=== PATIENT | female | born 1955 | race Caucasian/White ===

== ENCOUNTER 2023-04-26 16:18 | Inpatient (IN) | payer MEDICARE, SELFPAY ==
[2023-04-26 16:41] VITALS: BMI 31.3
[2023-04-26 17:22] VITALS: BP 168/76; PULSE 74; RESP 17; TEMP 36.4; O2SAT 92
[2023-04-26 17:36] LABS: Bedside Glucose 121 mg/dL (74-106)
[2023-04-26 19:40] VITALS: O2SAT 94
[2023-04-26 19:50] VITALS: BP 239/98; PULSE 85; RESP 20; TEMP 37.3; O2SAT 92
[2023-04-26] MEDS: oxyCODONE 5 MG Tablet PO ×2 (19:50→21:10)
[2023-04-26] MEDS: Acetaminophen 500 MG Tablet 1000 MG PO (19:50)
[2023-04-26] MEDS: Methocarbamol 750 MG Tablet PO (19:51)
[2023-04-26] MEDS: BACITRACIN/POLYMYXIN B 15 GM Tube 1 APPLIC TOPICAL (19:54)
[2023-04-26] MEDS: Lisinopril 20 MG Tablet PO (19:54)
[2023-04-26] MEDS: Propranolol 40 MG Tablet PO (19:54)
[2023-04-26] MEDS: Atorvastatin Calcium 20 MG Tablet PO (19:54)
[2023-04-26 20:46] LABS: Bedside Glucose 189 mg/dL (74-106)
[2023-04-26 22:08] VITALS: BP 176/71
[2023-04-27] MEDS: oxyCODONE 5 MG Tablet PO ×5 (03:07→21:21)
[2023-04-27] MEDS: Acetaminophen 500 MG Tablet 1000 MG PO ×3 (05:48→21:23)
[2023-04-27] MEDS: Methocarbamol 750 MG Tablet PO ×3 (05:48→21:22)
[2023-04-27] MEDS: Propranolol 40 MG Tablet PO ×3 (05:48→21:22)
[2023-04-27] MEDS: BACITRACIN/POLYMYXIN B 15 GM Tube 1 APPLIC TOPICAL ×2 (05:49→21:23)
[2023-04-27 06:00] VITALS: BP 204/80; PULSE 70; RESP 18; TEMP 36; O2SAT 93
[2023-04-27] MEDS: Lidocaine 5% Patch 1 PATCH TOPICAL (06:07)
[2023-04-27 06:36] LABS: Bedside Glucose 167 mg/dL (74-106)
[2023-04-27 08:15] LABS: Hematocrit 30.9 % (37-47); Hemoglobin 10.5 g/dL (12.0-15.0); Mean Corpuscular Hgb 29.9 pg (27.0-32.0); Mean Platelet Vol. 8.3 fl (6.2-12.0); POSITIVE COUNT YES; POSITIVE MORPHOLOGY YES; Platelet Count 209 K/mm3 (150-450); RBC Distribution Width CV 14.1 % (11.6-14.6); RBC Distribution Width SD 43.2 fl (35.1-43.9); Red Blood Count 3.51 M/mm3 (4.2-5.4); White Blood Count 4.9 K/mm3 (4.4-11.0)
[2023-04-27 08:25] LABS: Differential Indicated MANUAL DIFF
[2023-04-27 08:30] VITALS: BP 159/47; PULSE 60
[2023-04-27] MEDS: Pioglitazone Hydrochloride 30 MG Tablet PO (08:34)
[2023-04-27] MEDS: Glimepiride 2 MG Tablet PO (08:34)
[2023-04-27] MEDS: Polyethylene Glycol 3350 17 GM PACKET PO (08:35)
[2023-04-27] MEDS: Lisinopril 20 MG Tablet PO ×2 (08:35→21:23)
[2023-04-27 08:36] LABS: Eosinophil 4 % (0-5); Lymphocyte 28 % (19-41); Metamyelocyte 1 % (0-1); Monocyte 7 % (0-10); Myelocyte 1 % (0-0); Neutrophil-Band 1 % (0-5); Neutrophil-Segmented 58 % (47-70); Total Cells Counted 100 (MANUAL DIFF)
[2023-04-27 08:39] LABS: ALB/GLOB Ratio 0.6 RATIO (0.9-2.4); AST(SGOT) 24 U/L (15-37); Alanine Aminotransfer ALT/SGPT 24 U/L (13-56); Albumin, Serum 2.1 g/dL (3.2-5.0); Alkaline Phosphatase 50 U/L (45-117); Anion Gap 4 (5-15); BUN 10 mg/dL (7-18); BUN/Creat Ratio 16.8 RATIO (10-20); Calcium,Total 8.9 mg/dL (8.5-10.1); Chloride 103 mmol/L (98-107); EST Glomerular Filtration Rate 106 mL/min (>60); Est Glom Filt Rate - Afr Amer 128 mL/min (>60); Estimated Creatinine Clearance 75.66 ml/min; Globulin 3.7 g/dL (2.2-4.2); Glucose 180 mg/dL (74-106); Magnesium 2.1 mg/dL (1.6-2.6); Potassium 3.7 mmol/L (3.5-5.1); Protein, Total 5.8 g/dL (6.4-8.2); Sodium Level 134 mmol/L (136-145)
[2023-04-27 08:40] LABS: Platelet Estimate ADEQUATE (ADEQ); Red Cell Morphology NORM C+C NORMAL (NORM C&C)
[2023-04-27 08:42] LABS: Absolute Neutrophil Count 2.9 X10^3/uL (2.0-7.7)
[2023-04-27] MEDS: Menthol/Lanolin/Calamine/Znox 113 GM Tube 1 APPLIC TOPICAL ×2 (08:42→21:26)
[2023-04-27 12:16] LABS: Bedside Glucose 150 mg/dL (74-106)
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
[2023-04-27 16:10] LABS: Hemoglobin A1c 6.1 % (3.8-5.6)
[2023-04-27 17:15] LABS: Bedside Glucose 133 mg/dL (74-106)
[2023-04-27 21:20] VITALS: BP 145/49; PULSE 60; RESP 17; TEMP 36.4; O2SAT 95
[2023-04-27] MEDS: Atorvastatin Calcium 20 MG Tablet PO (21:22)
[2023-04-27 21:48] LABS: Bedside Glucose 135 mg/dL (74-106)
[2023-04-28 01:06] LABS: Microalbumin,Random Urine < 5.0 mg/L (NO RANGE EST.)
[2023-04-28] MEDS: oxyCODONE 5 MG Tablet PO ×2 (05:30→09:38)
[2023-04-28] MEDS: Propranolol 40 MG Tablet PO ×3 (05:31→21:46)
[2023-04-28] MEDS: Acetaminophen 500 MG Tablet 1000 MG PO (05:31)
[2023-04-28] MEDS: Methocarbamol 750 MG Tablet PO ×3 (05:31→17:22)
[2023-04-28] MEDS: BACITRACIN/POLYMYXIN B 15 GM Tube 1 APPLIC TOPICAL ×2 (05:40→21:52)
[2023-04-28 06:38] VITALS: O2SAT 95
[2023-04-28] MEDS: Enoxaparin 40 MG/0.4 ML Syringe SC (06:46)
[2023-04-28 07:10] VITALS: BMI 30.9
[2023-04-28 07:14] LABS: Bedside Glucose 145 mg/dL (74-106)
[2023-04-28 08:05] VITALS: BP 164/74; PULSE 67; RESP 17; TEMP 36.2; O2SAT 95
[2023-04-28] MEDS: Glimepiride 2 MG Tablet PO (08:58)
[2023-04-28] MEDS: Pioglitazone Hydrochloride 30 MG Tablet PO (08:59)
[2023-04-28] MEDS: Polyethylene Glycol 3350 17 GM PACKET PO (08:59)
[2023-04-28] MEDS: Lidocaine 5% Patch 1 PATCH TOPICAL (08:59)
[2023-04-28] MEDS: Lisinopril 20 MG Tablet PO ×2 (08:59→21:46)
--- NOTE | 2023-04-28 10:50 | PN_ITS ---
Subjective Subjective Afebrile VSS Maintaining appropriate oxygen saturation on RA Oral intake - FOOD 50 to 74% of her meal FLUIDS fair The blood sugar record was reviewed. Blood sugars are well-controlled. Discussed with nursing - no problems that need addressed Reviewed the THERAPY notes Medication list reviewed. Tells me that she slept somewhat better last night. she is c/o pain in the LUQ of the abd and the R neck after therapy this AM. The pain improved when she got back in bed. Denies feeling bloated or constipated. Having regular BM's. Pain in the abd is not crampy. She denies nausea and has not had any emesis. She ate 50-74% of her breakfast this AM. Denies pain in the arms or legs. Denies numbness. Denies cephalgia. No calf tenderness. Hemoglobin A1c is 6.1. Objective Data Objective Data Vital Signs: Vital Signs Temp Pulse Resp BP Pulse Ox O2 Del Method 97.2 F L 67 17 164/74 H 95 Room Air 04/28/23 08:05 04/28/23 08:05 04/28/23 08:05 04/28/23 08:05 04/28/23 08:05 04/28/23 08:05 Oxygen Delivery Method Room Air Weight: 199 lb 15.348 oz Body Mass Index (BMI) 31.3 Intake & Output: Intake and Output for Last 24 Hours 04/26/23 04/27/23 04/28/23 23:59 23:59 23:59 Intake Total 240 / 240 1020 / 1020 Output Total 800 / 800 1000 / 1000 Balance -560 / -560 Lab / Micro Data 04/27/23 08:01 04/27/23 08:01 Labs: Laboratory Results - last 24 hr 04/27/23 08:01: Hemoglobin A1c 6.1 H 04/27/23 11:58: POC Glucose 150 H 04/27/23 16:51: POC Glucose 133 H 04/27/23 21:17: POC Glucose 135 H 04/27/23 23:50: Ur Random Microalbumin < 5.0 04/28/23 06:45: POC Glucose 145 H Physical Exam Const alert, oriented x3 and no apparent distress Constitutional Narrative: Lying in bed resting. Neck Neck Narrative: [place] J collar is in place. Resp normal respiratory effort and clear to auscultation bilaterally Effort and Inspection: Negative for tachypneic Cardio regular rate, regular rhythm, no murmurs, no rub and no gallops GI normal to inspection, nondistended, normoactive bowel sounds, soft to palpation and non-tender GI Narrative: No guarding with palpation. Not tympanic. No guarding even with deep palpation of the left upper quadrant. Extremity no calf tenderness Extremity Narrative: Persistent edema of hands and feet Skin General Skin Exam: no breakdown Rashes: no rashes Wound Narrative: The scalp laceration is intact with no discharge from the wound and no erythema. Neuro CN's II-XII intact bilaterally Psych thought process normal and affect normal Assessment & Plan Assessment/Plan (1) Physical debility: (2) ABLA (acute blood loss anemia): (3) Hyponatremia: (4) History of spinal fusion: (5) Acute pain due to trauma: PLAN: Plan 1. Continue therapy 2. Schedule Oxycodone 10 mg at 0700, 1200, 1700. 15 mg at 10 PM nightly 3. Schedule the Methocarbamol 750 at 077, noon, 5 PM. 1,000 mg at 2200 nightly. 4. Continue Tylenol 650 mg at 0700, 1200, 1700 and 2200. 5. Decrease Accu-Cheks to twice daily, fasting and prior to supper. 6. She was taking Gabapentin 100 mg TID at the previous hospital and this was not continued at transfer to [facility]. Charges/Coding Visit Charges Inpatient E&M: 23436 Subs Hosp L2
[2023-04-28] MEDS: oxyCODONE 5 MG Tablet 10 MG PO ×2 (13:04→17:23)
[2023-04-28] MEDS: Acetaminophen 325 MG Tablet 650 MG PO ×3 (13:05→21:46)
[2023-04-28 13:18] LABS: Pathologist Review Reviewed
[2023-04-28 14:32] VITALS: BP 167/68; PULSE 68; RESP 20
[2023-04-28 16:36] LABS: Bedside Glucose 139 mg/dL (74-106)
[2023-04-28] MEDS: Methocarbamol 500 MG Tablet 1000 MG PO (21:44)
[2023-04-28] MEDS: oxyCODONE 5 MG Tablet 15 MG PO (21:46)
[2023-04-28] MEDS: Atorvastatin Calcium 20 MG Tablet PO (21:46)
[2023-04-28] MEDS: Menthol/Lanolin/Calamine/Znox 113 GM Tube 1 APPLIC TOPICAL (21:48)
[2023-04-28 22:00] VITALS: BP 151/61; PULSE 58; RESP 18; TEMP 36.6; O2SAT 95
[2023-04-29] MEDS: BACITRACIN/POLYMYXIN B 15 GM Tube 1 APPLIC TOPICAL ×2 (05:00→21:38)
[2023-04-29] MEDS: Propranolol 40 MG Tablet PO ×3 (05:00→21:33)
[2023-04-29] MEDS: Enoxaparin 40 MG/0.4 ML Syringe SC (05:00)
[2023-04-29] MEDS: Methocarbamol 750 MG Tablet PO ×3 (06:00→16:40)
[2023-04-29] MEDS: oxyCODONE 5 MG Tablet 10 MG PO ×3 (06:00→16:39)
[2023-04-29] MEDS: Acetaminophen 325 MG Tablet 650 MG PO ×4 (06:00→21:35)
[2023-04-29] MEDS: Pioglitazone Hydrochloride 30 MG Tablet PO (07:54)
[2023-04-29] MEDS: Glimepiride 2 MG Tablet PO (07:55)
[2023-04-29] MEDS: Lisinopril 20 MG Tablet PO ×2 (07:55→21:33)
[2023-04-29] MEDS: Methocarbamol 500 MG Tablet 1000 MG PO (07:55)
[2023-04-29] MEDS: Polyethylene Glycol 3350 17 GM PACKET PO (07:57)
[2023-04-29] MEDS: Senna/Docusate Sodium 1 Tablet 2 TABLET PO (07:57)
[2023-04-29] MEDS: Lidocaine 5% Patch 1 PATCH TOPICAL (07:57)
[2023-04-29 08:03] LABS: Bedside Glucose 142 mg/dL (74-106)
[2023-04-29 08:08] VITALS: BP 120/70; PULSE 69; RESP 18; TEMP 36.6; O2SAT 96
--- NOTE | 2023-04-29 10:41 | NURSING ---
dr blas text for poss additional pain meds for breakthrough pain. no new orders at this time.
--- NOTE | 2023-04-29 15:07 | NURSING ---
pt called out and reports numbness to rt thigh. pt rubbing it. able to move and no weakness obs unilaterally. pt with decreased sensation when had close eyes and did skin prick with testing. will let dr. blas know.
[2023-04-29 17:03] LABS: Bedside Glucose 103 mg/dL (74-106)
[2023-04-29 19:50] VITALS: BP 167/53; PULSE 61; RESP 16; TEMP 36.8; O2SAT 96
[2023-04-29] MEDS: oxyCODONE 5 MG Tablet 15 MG PO (21:33)
[2023-04-29] MEDS: Atorvastatin Calcium 20 MG Tablet PO (21:33)
[2023-04-30] MEDS: Methocarbamol 750 MG Tablet PO ×3 (06:11→17:06)
[2023-04-30] MEDS: Propranolol 40 MG Tablet PO ×3 (06:11→21:37)
[2023-04-30] MEDS: oxyCODONE 5 MG Tablet 10 MG PO ×4 (06:11→21:37)
[2023-04-30] MEDS: Acetaminophen 325 MG Tablet 650 MG PO ×4 (06:11→21:39)
[2023-04-30] MEDS: Enoxaparin 40 MG/0.4 ML Syringe SC (06:15)
[2023-04-30] MEDS: BACITRACIN/POLYMYXIN B 15 GM Tube 1 APPLIC TOPICAL ×2 (06:17→21:38)
[2023-04-30 07:02] LABS: Bedside Glucose 148 mg/dL (74-106)
[2023-04-30 07:52] VITALS: BP 164/72; PULSE 70; RESP 69; TEMP 36.4; O2SAT 97
[2023-04-30] MEDS: Glimepiride 2 MG Tablet PO (10:12)
[2023-04-30] MEDS: Lisinopril 20 MG Tablet PO ×2 (10:12→21:39)
[2023-04-30] MEDS: Polyethylene Glycol 3350 17 GM PACKET PO (10:12)
[2023-04-30] MEDS: Senna/Docusate Sodium 1 Tablet 2 TABLET PO (10:12)
[2023-04-30] MEDS: Pioglitazone Hydrochloride 30 MG Tablet PO (10:12)
[2023-04-30] MEDS: Lidocaine 5% Patch 1 PATCH TOPICAL (10:13)
[2023-04-30] MEDS: Miconazole Nitrate 43 GM Bottle 1 APPLIC TOPICAL ×2 (10:16→21:36)
[2023-04-30] MEDS: Menthol/Lanolin/Calamine/Znox 113 GM Tube 1 APPLIC TOPICAL ×2 (10:16→21:36)
--- NOTE | 2023-04-30 11:27 | PCM.PROGNOTE ---
Subjective Subjective Afebrile VSS-systolic blood pressures consistently elevated and often in the 160s. Diastolics are within goal. Heart rate is within normal limits. Maintaining appropriate oxygen saturation on RA Oral intake - FOOD appetite is improving somewhat FLUIDS inconsistent intake. She took 1400 cc p.o. yesterday. Discussed with nursing - she is having pain early in the AM around 4-5 Reviewed the THERAPY notes Medication list reviewed. She is c/o pain in the trapezius areas BL and also is having some radiation into the Left triceps. Oxycodone has not been very effective in relieving this pain. She denies any numbness in her upper extremities or fingertips. She is also complaining of lightheadedness when she turns over in bed and when she sits up. Oral fluid intake was okay yesterday but prior to that was poor. Mckenzie tells me that her pain is somewhat better than it was when she first arrived on rehab. Overall she is pretty happy with her pain control but would like something as needed if she awakens at 3 to 5:0 AM with pain. To be denies any change in the chest discomfort, shortness of breath, cough, calf pain, dysuria, cephalgia, shaking chills, nausea. Objective Data Objective Data Vital Signs: Vital Signs Temp Pulse Resp BP Pulse Ox O2 Del Method 97.6 F L 70 69 H 164/72 H 97 Room Air 04/30/23 07:52 04/30/23 07:52 04/30/23 07:52 04/30/23 07:52 04/30/23 07:52 04/30/23 10:00 Oxygen Delivery Method Room Air Weight: 197 lb 3.2 oz Body Mass Index (BMI) 30.9 Intake & Output: Intake and Output for Last 24 Hours 04/28/23 04/29/23 04/30/23 23:59 23:59 23:59 Intake Total 800 / 800 1400 / 1400 490 / 490 Output Total 1100 / 1100 600 / 600 1000 / 1000 Balance -300 / -300 800 / 800 -510 / -510 Lab / Micro Data 04/27/23 08:01 04/27/23 08:01 Labs: Laboratory Results - last 24 hr 04/29/23 16:38: POC Glucose 103 04/30/23 06:44: POC Glucose 148 H Physical Exam Const alert, oriented x3 and no apparent distress Constitutional Narrative: Nursing just changed her bed and she was rolled from side to side which she tolerated well without any significant increase in pain. General Appearance: cooperative Resp clear to auscultation bilaterally Resp Narrative: No conversational dyspnea Effort and Inspection: Negative for tachypneic Cardio regular rate, regular rhythm, no murmurs, no rub and no gallops Cardio Narrative: Occasional early beat which she does not feel. GI normal to inspection, nondistended, normoactive bowel sounds, soft to palpation and non-tender GI Narrative: No guarding with palpation Back/Spine Back/Spine Narrative: No significant trapezius spasm. she has no pain with palpation of the trapezius muscles with palpation/touch. Extremity no calf tenderness Extremity Narrative: No ankle edema. The puffiness in her hands is improving. Skin General Skin Exam: no breakdown Rashes: no rashes Wound Narrative: The scalp laceration is healing well with no erythema, no purulent discharge and no localized swelling. Psych cooperative and affect normal Appearance: appropriate Assessment & Plan Assessment/Plan (1) Physical debility: (2) ABLA (acute blood loss anemia): (3) Hyponatremia: (4) History of spinal fusion: (5) Acute pain due to trauma: PLAN: Plan 1. Continue therapy 2. I suspect the pain in the upper trapezius areas and the shoulders and triceps is radicular pain. She was previously on gabapentin at the other hospital so we will restart at 100 mg p.o. 3 times daily. 3. Add a as needed dose of oxycodone 10 mg from MN to 6AM for breakthrough pain. 4. Check a BMP and CBC with differential in the AM. Charges/Coding Visit Charges Inpatient E&M: 97380 Subs Hosp L1
[2023-04-30] MEDS: Gabapentin 100 MG Capsule PO ×2 (11:52→17:07)
[2023-04-30 17:38] LABS: Bedside Glucose 120 mg/dL (74-106)
[2023-04-30] MEDS: Atorvastatin Calcium 20 MG Tablet PO (21:37)
[2023-04-30] MEDS: Methocarbamol 500 MG Tablet 1000 MG PO ×2 (21:54)
[2023-04-30 21:58] VITALS: BP 144/70; PULSE 70; RESP 16; TEMP 36.4; O2SAT 96
[2023-04-30 22:00] VITALS: PULSE 70; RESP 16
[2023-05-01] MEDS: oxyCODONE 5 MG Tablet PO (03:20)
[2023-05-01 06:01] LABS: Absolute Lymphocyte Count 1.84 X10^3/uL (0.83-4.51); Absolute Neutrophil Count 3.6 X10^3/uL (2.0-7.7); Basophil# 0.03 X10^3/uL; Basophil% 0.5 % (0-1); Eosinophil# 0.21 X10^3/uL; Eosinophils% 3.4 % (0-5); Hematocrit 32.8 % (37-47); Lymphocyte # 1.84 X10^3/ul (0.83-4.51); Lymphocyte % 29.7 % (19-41); Mean Corp Hgb Conc 33.5 g/dL (32-36); Mean Corpuscular Hgb 30.2 pg (27.0-32.0); Mean Corpuscular Volume 90.1 fL (81-99); Mean Platelet Vol. 8.5 fl (6.2-12.0); Monocyte# 0.48 X10^3/uL; Monocyte% 7.7 % (0-10); NRBC Flagged by Analyzer 0 % (0-5); Neutrophil # 3.56 X10^3/uL (2.7-7.7); Neutrophil % 57.4 % (47-70); Platelet Count 271 K/mm3 (150-450); RBC Distribution Width SD 46.8 fl (35.1-43.9); Red Blood Count 3.64 M/mm3 (4.2-5.4); White Blood Count 6.2 K/mm3 (4.4-11.0)
[2023-05-01] MEDS: BACITRACIN/POLYMYXIN B 15 GM Tube 1 APPLIC TOPICAL ×2 (06:13→21:37)
[2023-05-01] MEDS: Propranolol 40 MG Tablet PO ×3 (06:13→21:37)
[2023-05-01] MEDS: Enoxaparin 40 MG/0.4 ML Syringe SC (06:13)
[2023-05-01] MEDS: Acetaminophen 325 MG Tablet 650 MG PO ×4 (06:14→21:38)
[2023-05-01] MEDS: oxyCODONE 5 MG Tablet 10 MG PO ×3 (06:14→17:06)
[2023-05-01] MEDS: Methocarbamol 750 MG Tablet PO (06:14)
[2023-05-01 06:38] LABS: Anion Gap 5 (5-15); BUN 14 mg/dL (7-18); BUN/Creat Ratio 24.1 RATIO (10-20); Calcium,Total 8.9 mg/dL (8.5-10.1); Chloride 105 mmol/L (98-107); Creatinine, Serum 0.58 mg/dL (0.55-1.02); EST Glomerular Filtration Rate 109 mL/min (>60); Est Glom Filt Rate - Afr Amer 132 mL/min (>60); Estimated Creatinine Clearance 75.14 ml/min; Glucose 143 mg/dL (74-106); Potassium 4.1 mmol/L (3.5-5.1); Sodium Level 135 mmol/L (136-145)
[2023-05-01 07:15] LABS: Bedside Glucose 135 mg/dL (74-106)
[2023-05-01 08:00] VITALS: BP 146/62; PULSE 73; RESP 16; TEMP 36.8; O2SAT 95
[2023-05-01] MEDS: Lidocaine 5% Patch 1 PATCH TOPICAL (08:34)
[2023-05-01] MEDS: Pioglitazone Hydrochloride 30 MG Tablet PO (08:34)
[2023-05-01] MEDS: Gabapentin 100 MG Capsule PO ×3 (08:34→18:04)
[2023-05-01] MEDS: Lisinopril 20 MG Tablet PO ×2 (08:34→21:38)
[2023-05-01] MEDS: Ergocalciferol 1.25 MG (50, 000 UNIT) Capsule PO (08:34)
[2023-05-01] MEDS: Glimepiride 2 MG Tablet PO (08:34)
[2023-05-01] MEDS: Menthol/Lanolin/Calamine/Znox 113 GM Tube 1 APPLIC TOPICAL ×2 (08:37→21:50)
[2023-05-01] MEDS: Miconazole Nitrate 43 GM Bottle 1 APPLIC TOPICAL ×2 (08:37→21:50)
--- NOTE | 2023-05-01 11:40 | PCM.PROGNOTE ---
Subjective Subjective Mckenzie was seen on team rounds today. Her Dudley was present in the room. Afebrile VSS-systolic blood pressures are consistently elevated but the diastolics are within normal limits. Heart rate is within normal limits. Maintaining appropriate oxygen saturation on RA Oral intake - FOOD she ate 75 to 100% of her breakfast this morning and 50 to 74% of her supper last night. Overall nutritional intake is improving. FLUIDS adequate Last bowel movement was today. The blood sugar record was reviewed and the blood sugars are under excellent control. Discussed with nursing -has been incontinent of urine at times. Reviewed the THERAPY notes Medication list reviewed. Mckenzie tells me that she slept better last night and the additional dose of as needed oxycodone at night seems to be helping. She does not feel the gabapentin has been helping and she is complaining of pain in the R posterior shoulder and the upper thoracic area on the R. She tells me that she has an occasional cough and the sputum is green. the pain only happens when she is actively using the muscles of the r shoulder/RUE and R upper back. It resolves when she is back in bed. Denies N/V/abd pain, dysuria, She denies chest pain, calf pain, shortness of breath, nausea, vomiting, abdominal pain, lightheadedness and cephalgia. All lab drawn this morning was personally reviewed. Hemoglobin is stable at 11 and the white blood cell count and platelets are within normal limits. Sodium is mildly decreased at 135 but stable. Potassium is 4.1, BUN is 14 with a creatinine of 0.58 which is stable. Objective Data Objective Data Vital Signs: Vital Signs Temp Pulse Resp BP Pulse Ox O2 Del Method 98.2 F 73 16 146/62 H 95 Room Air 05/01/23 08:00 05/01/23 08:00 05/01/23 08:00 05/01/23 08:00 05/01/23 08:00 05/01/23 08:00 Oxygen Delivery Method Room Air Weight: 197 lb 3.2 oz Body Mass Index (BMI) 30.9 Intake & Output: Intake and Output for Last 24 Hours 04/29/23 04/30/23 05/01/23 23:59 23:59 23:59 Intake Total 1400 / 1400 1380 / 1380 860 / 860 Output Total 600 / 600 1650 / 1650 950 / 950 Balance 800 / 800 -270 / -270 -90 / -90 Lab / Micro Data 05/01/23 05:51 05/01/23 05:51 Labs: Laboratory Results - last 24 hr 04/30/23 17:10: POC Glucose 120 H 05/01/23 05:51: WBC 6.2, RBC 3.64 L, Hgb 11.0 L, Hct 32.8 L, MCV 90.1, MCH 30.2, MCHC 33.5, RDW Std Deviation 46.8 H, RDW Coeff of Huy 15.0 H, Plt Count 271, MPV 8.5, Immature Gran % (Auto) 1.300 H, Neut % (Auto) 57.4, Lymph % (Auto) 29.7, [place] % (Auto) 7.7, Eos % (Auto) 3.4, Baso % (Auto) 0.5, Absolute Neuts (auto) 3.6, Absolute Lymphs (auto) 1.84, Nucleated RBC % 0, Sodium 135 L, Potassium 4.1, Chloride 105, Carbon Dioxide 25.0, Anion Gap 5, BUN 14, Creatinine 0.58, Estim Creat Clear Calc 75.14, Est GFR (MDRD) Af Amer 132, Est GFR (MDRD) Non-Af 109, BUN/Creatinine Ratio 24.1 H, Glucose 143 H, Calcium 8.9 05/01/23 06:24: POC Glucose 135 H Physical Exam Const alert and oriented x3 Constitutional Narrative: appears to be in pain. The pain in the R shoulder increases when the OT is having her use the muscle during exercises. She tells me that she is not bothered by pain at night in the shoulder. Ice has not helped. General Appearance: cooperative HEENT HEENT Narrative: the scalp laceration is healing well and there is no serenity-incisional erythema, no dehiscence and no purulent discharge. Resp Resp Narrative: She has a few coarse crackles in the left base that do not resolve after a few deep breaths. She is otherwise clear to auscultation. Effort and Inspection: Negative for tachypneic or labored Cardio regular rate, regular rhythm and no gallops GI normal to inspection, nondistended, normoactive bowel sounds, soft to palpation and non-tender Back/Spine Back/Spine Narrative: She has pain with even light touch to the Right posterior shoulder, thoracic paravertebral muscles in the upper thoracic area. No redness. Some resolving bruising. No openings in the skin. Some spasm in the upper thoracic paravertebral muscles medial to the scapula. Extremity no calf tenderness Extremity Narrative: Trace ankle edema in the left ankle. Skin Rashes: no rashes Assessment & Plan Assessment/Plan (1) Physical debility: (2) ABLA (acute blood loss anemia): PLAN: Hemoglobin is stable (3) Hyponatremia: PLAN: Stable (4) History of spinal fusion: (5) Acute pain due to trauma: PLAN: Plan 1. Continue therapy 2. Continue methocarbamol as ordered for muscle spasm 3. Try a K-pad to the area in her upper thoracic spine on the right and start a compounded cream containing baclofen, Voltaren and lidocaine to the involved area 3 times daily 4. PA and lateral chest x-ray today for persistent left basilar crackles with complaint of cough 5. The systolic blood pressures mild to moderately elevated however I think this is secondary to pain and will improve with better pain control, 6. Pain management consult with Dr. Marcus. Charges/Coding Visit Charges Inpatient E&M: 49018 Subs Hosp L2
--- NOTE | 2023-05-01 12:26 | RAD_ITS ---
STUDY: X-RAY CHEST REASON FOR EXAM: Female, 68 years old. cough with crackles in L base TECHNIQUE: PA and lateral views of the chest. COMPARISON: None. FINDINGS: The lungs are clear and expanded. There is no demonstrated pleural abnormality. Normal size heart. Normal mediastinum and landy. Normal visualized pulmonary arteries. Normal visualized aortic arch and descending thoracic aorta. There are diffuse degenerative changes of the visualized thoracic spine. Normal visualized ribs, clavicles, and shoulders. There is no demonstrated abnormality of the visualized soft tissue structures of the upper abdomen. RAD/Chest PA and Lateral IMPRESSION: No acute pulmonary process Electronically Signed: Agustin Hernandez MD at 13:21 EST ,
[2023-05-01] MEDS: Methocarbamol 500 MG Tablet 1000 MG PO ×3 (12:56→21:37)
[2023-05-01] MEDS: Arthritis Pain Compound 60 CLICK TUBE TOPICAL ×2 (13:03→21:34)
--- NOTE | 2023-05-01 13:46 | CASEMGMT ---
Social Work IDT met with patient and for Team meeting. Discussed patient's progress in PT/OT/ST/SN. Educated to [facility] insurance with NRD 3/4 and continued stay is not guaranteed with each review. Discussed possibly needing an alternative DC plan aside from going home. Broached topic of SNF as did confirm he can only assist minimally. Both agreed to SNF, if needed and requested [facility]. SW printed and provided SNF list to pt and INN with insurance with quality and resource data via [employer]. SW answered more questions and educated to insurance coverage, OOP cost, part B therapies. SW will continue to follow for DC planning. Will ReTeam weekly. Tanvi Jara MSW [employer]
[2023-05-01 17:07] LABS: Bedside Glucose 126 mg/dL (74-106)
[2023-05-01] MEDS: Buprenorphine 10 MCG PATCH.TDWK 1 PATCH TD (18:43)
[2023-05-01 20:46] VITALS: BP 151/60; PULSE 63; RESP 17; TEMP 36.3; O2SAT 96
[2023-05-01] MEDS: Atorvastatin Calcium 20 MG Tablet PO (21:37)
[2023-05-01 22:01] VITALS: BP 161/62; PULSE 66
[2023-05-02] MEDS: Arthritis Pain Compound 60 CLICK TUBE TOPICAL ×3 (05:07→21:10)
[2023-05-02] MEDS: Propranolol 40 MG Tablet PO ×3 (05:07→21:09)
[2023-05-02] MEDS: BACITRACIN/POLYMYXIN B 15 GM Tube 1 APPLIC TOPICAL ×2 (05:08→21:09)
[2023-05-02] MEDS: Enoxaparin 40 MG/0.4 ML Syringe SC (05:08)
[2023-05-02] MEDS: Acetaminophen 325 MG Tablet 650 MG PO ×4 (06:40→21:09)
[2023-05-02] MEDS: Methocarbamol 500 MG Tablet 1000 MG PO ×4 (06:40→21:08)
[2023-05-02 07:10] LABS: Bedside Glucose 131 mg/dL (74-106)
[2023-05-02] MEDS: Pioglitazone Hydrochloride 30 MG Tablet PO (08:49)
[2023-05-02] MEDS: Polyethylene Glycol 3350 17 GM PACKET PO (08:50)
[2023-05-02] MEDS: Lisinopril 20 MG Tablet PO ×2 (08:50→21:07)
[2023-05-02] MEDS: Lidocaine 5% Patch 1 PATCH TOPICAL (08:50)
[2023-05-02] MEDS: Senna/Docusate Sodium 1 Tablet 2 TABLET PO ×2 (08:50→21:08)
[2023-05-02] MEDS: Glimepiride 2 MG Tablet PO (08:51)
[2023-05-02] MEDS: Gabapentin 100 MG Capsule PO ×3 (08:54→17:14)
[2023-05-02] MEDS: oxyCODONE 5 MG Tablet PO ×3 (08:54→21:10)
[2023-05-02] MEDS: Miconazole Nitrate 43 GM Bottle 1 APPLIC TOPICAL ×2 (09:04→21:18)
[2023-05-02] MEDS: Menthol/Lanolin/Calamine/Znox 113 GM Tube 1 APPLIC TOPICAL ×2 (09:07→21:19)
[2023-05-02 10:00] VITALS: BP 155/63; PULSE 68; RESP 15; TEMP 36.5; O2SAT 96
--- NOTE | 2023-05-02 10:44 | PN_ITS ---
Subjective Subjective Afebrile VSS-systolics are consistently above goal. Diastolics are within normal limits. Heart rate is within normal limits. Maintaining appropriate oxygen saturation on RA-95 to 96%. Oral intake - FOOD slowly improving, she had 75 to 100% of her breakfast this morning and 50 to 74% of her supper last night. FLUIDS improving, fluid intake yesterday was 1500 cc. Discussed with nursing - no problems that need addressed Reviewed the THERAPY notes Medication list reviewed. Mckenzie tells me that the pain in the R shoulder is somewhat better today. She was seen by Dr. Marcus for pain management and was started on a Butrans patch. She has oxycodone 5 mg every 6 hours ordered for breakthrough pain. She c ontinues to use the leg lidocaine patch, scheduled Tylenol, methocarbamol and gabapentin 100 mg p.o. 3 times daily. She was able to do therapy today without having to stop because of shoulder pain. She denies SOB, CP, palpitations, lightheadedness today. Also denies N/V/abd pain. Not c/o hip, sternal or rib pain today. she did request the nurse to see if the Oxycodone could be increased to 10 mg Objective Data Objective Data Vital Signs: Vital Signs Temp Pulse Resp BP Pulse Ox O2 Del Method 97.7 F L 68 15 155/63 H 96 Room Air 05/02/23 10:00 05/02/23 10:00 05/02/23 10:00 05/02/23 10:00 05/02/23 10:00 05/02/23 10:00 Oxygen Delivery Method Room Air Weight: 197 lb 3.2 oz Body Mass Index (BMI) 30.9 Intake & Output: Intake and Output for Last 24 Hours 04/30/23 05/01/23 05/02/23 23:59 23:59 23:59 Intake Total 1380 / 1380 1500 / 1500 220 / 220 Output Total 1650 / 1650 2675 / 2675 1050 / 1050 Balance -270 / -270 -1175 / -1175 -830 / -830 Lab / Micro Data 05/01/23 05:51 05/01/23 05:51 Labs: Laboratory Results - last 24 hr 05/01/23 16:48: POC Glucose 126 H 05/02/23 06:49: POC Glucose 131 H Radiography Diagnostic Testing: Radiology Impression Chest X-Ray 05/01/23 12:26 IMPRESSION: No acute pulmonary process Electronically Signed: Agustin Hernandez MD at 13:21 EST , Physical Exam Const alert, oriented x3 and no apparent distress General Appearance: cooperative Neck Neck Narrative: [place] J collar is in place. Resp normal respiratory effort and clear to auscultation bilaterally Cardio regular rate, regular rhythm, no murmurs and no gallops GI normal to inspection, nondistended, normoactive bowel sounds, soft to palpation and non-tender GI Narrative: No guarding with palpation Extremity no calf tenderness Extremity Narrative: Trace ankle edema in the left ankle. Psych thought process normal, cooperative and affect normal Psych Narrative: She is calm and makes good eye contact. Appearance: appropriate Attitude: No agitated Assessment & Plan Assessment/Plan (1) Physical debility: (2) ABLA (acute blood loss anemia): (3) Hyponatremia: (4) History of spinal fusion: (5) Acute pain due to trauma: (6) Hypertension, uncontrolled: PLAN: Plan 1. Continue therapy 2. Continue the current drug regimen for pain control 3. Blood sugars are under excellent control with no hypoglycemia-continue Amaryl and pioglitazone 4. Add Norvasc 2.5 mg daily to her drug regimen for hypertension-start today. 5. Continue to encourage increased fluid intake. 6. Consider starting to taper Methocarbamol tomorrow. 7. No change in the Oxycodone dose for breakthrough pain at this time. She has been on the Butrans patch less than 24H. Reassess in the AM. Charges/Coding Visit Charges Inpatient E&M: 76738 Subs Hosp L1
[2023-05-02] MEDS: amLODIPine 2.5 MG Tablet PO (12:34)
[2023-05-02 17:06] LABS: Bedside Glucose 103 mg/dL (74-106)
[2023-05-02 20:02] VITALS: BP 155/63; PULSE 71; RESP 16; TEMP 36.6; O2SAT 96
[2023-05-02] MEDS: Atorvastatin Calcium 20 MG Tablet PO (21:08)
[2023-05-03] MEDS: Acetaminophen 325 MG Tablet 650 MG PO ×4 (06:11→21:31)
[2023-05-03] MEDS: BACITRACIN/POLYMYXIN B 15 GM Tube 1 APPLIC TOPICAL ×2 (06:12→21:32)
[2023-05-03] MEDS: Methocarbamol 500 MG Tablet 1000 MG PO ×4 (06:12→21:31)
[2023-05-03] MEDS: Arthritis Pain Compound 60 CLICK TUBE TOPICAL ×3 (06:12→21:32)
[2023-05-03] MEDS: Propranolol 40 MG Tablet PO ×3 (06:12→21:31)
[2023-05-03] MEDS: Enoxaparin 40 MG/0.4 ML Syringe SC (06:13)
[2023-05-03 07:44] VITALS: BP 163/72; PULSE 68; RESP 15; TEMP 36.2; O2SAT 97
[2023-05-03] MEDS: Gabapentin 100 MG Capsule PO ×3 (08:06→17:17)
[2023-05-03] MEDS: Pioglitazone Hydrochloride 30 MG Tablet PO (08:07)
[2023-05-03] MEDS: Lidocaine 5% Patch 1 PATCH TOPICAL (08:07)
[2023-05-03] MEDS: Glimepiride 2 MG Tablet PO (08:07)
[2023-05-03] MEDS: Lisinopril 20 MG Tablet PO ×2 (08:08→21:30)
[2023-05-03] MEDS: amLODIPine 2.5 MG Tablet PO (08:09)
[2023-05-03] MEDS: oxyCODONE 5 MG Tablet PO ×3 (08:10→21:31)
[2023-05-03] MEDS: Miconazole Nitrate 43 GM Bottle 1 APPLIC TOPICAL (08:12)
[2023-05-03 09:45] LABS: Bedside Glucose 130 mg/dL (74-106)
[2023-05-03 17:03] LABS: Bedside Glucose 230 mg/dL (74-106)
[2023-05-03] MEDS: Atorvastatin Calcium 20 MG Tablet PO (21:31)
[2023-05-03 22:00] VITALS: BP 147/61; PULSE 70; RESP 16; TEMP 36.4; O2SAT 97
[2023-05-04] MEDS: oxyCODONE 5 MG Tablet PO ×3 (05:30→18:30)
[2023-05-04 05:53] LABS: Bedside Glucose 128 mg/dL (74-106)
[2023-05-04] MEDS: BACITRACIN/POLYMYXIN B 15 GM Tube 1 APPLIC TOPICAL ×2 (06:40→22:01)
[2023-05-04] MEDS: Arthritis Pain Compound 60 CLICK TUBE TOPICAL ×3 (06:41→22:00)
[2023-05-04] MEDS: Enoxaparin 40 MG/0.4 ML Syringe SC (06:41)
[2023-05-04] MEDS: Propranolol 40 MG Tablet PO ×3 (06:41→21:59)
[2023-05-04 08:14] VITALS: BP 166/70; PULSE 69; RESP 17; TEMP 36.2; O2SAT 96
[2023-05-04] MEDS: Glimepiride 2 MG Tablet PO (08:16)
[2023-05-04] MEDS: amLODIPine 2.5 MG Tablet PO (08:16)
[2023-05-04] MEDS: Pioglitazone Hydrochloride 30 MG Tablet PO (08:16)
[2023-05-04] MEDS: Methocarbamol 500 MG Tablet 1000 MG PO ×4 (08:16→21:59)
[2023-05-04] MEDS: Lidocaine 5% Patch 1 PATCH TOPICAL (08:17)
[2023-05-04] MEDS: Acetaminophen 325 MG Tablet 650 MG PO ×4 (08:17→22:05)
[2023-05-04] MEDS: Polyethylene Glycol 3350 17 GM PACKET PO (08:17)
[2023-05-04] MEDS: Lisinopril 20 MG Tablet PO ×2 (08:18→21:59)
[2023-05-04] MEDS: Gabapentin 100 MG Capsule PO ×3 (08:31→18:22)
--- NOTE | 2023-05-04 09:50 | PN_ITS ---
Subjective Subjective Afebrile VSS - systolic BP remains elevated. The HR is WNL Maintaining appropriate oxygen saturation on RA Oral intake - FOOD good FLUIDS adequate Discussed with nursing - she is c/o a sore throat today. Reviewed the THERAPY notes Medication list reviewed. Her throat is more sore in the AM. She admits to having post nasal drainage at night and has a cough when lying down at night to sleep. she denies calf pain, CP, SOB, palpitations. Tells me that she slept well last night and her pain today is pretty good . Having regular BM's and denies abd pain/N/V. I am told by nursing that she has an appt with the neurosurgeon next and then would like to see her in the office. She will need to be transitioned to a SNF for this to happen. Will D/W the SW. She will not be ready to go home next week. Still requiring a lot of assistance and her is not able to provide this. Objective Data Objective Data Vital Signs: Vital Signs Temp Pulse Resp BP Pulse Ox O2 Del Method 97.1 F L 69 17 166/70 H 96 Room Air 05/04/23 08:14 05/04/23 08:14 05/04/23 08:14 05/04/23 08:14 05/04/23 08:14 05/04/23 08:14 Oxygen Delivery Method Room Air Weight: 197 lb 3.2 oz Body Mass Index (BMI) 30.9 Intake & Output: Intake and Output for Last 24 Hours 05/02/23 05/03/23 05/04/23 23:59 23:59 23:59 Intake Total 1020 / 1520 1200 / 1200 120 / 120 Output Total 1650 / 2550 2750 / 2750 350 / 350 Balance -630 / -1030 -1550 / -1550 -230 / -230 Lab / Micro Data 05/01/23 05:51 05/01/23 05:51 Labs: Laboratory Results - last 24 hr 05/03/23 16:45: POC Glucose 230 H 05/04/23 05:14: POC Glucose 128 H Physical Exam Const alert and no apparent distress Constitutional Narrative: Sitting in the recliner at the bedside. General Appearance: cooperative HEENT HEENT Narrative: No exudate in the posterior pharynx. No sign of thrush. Not particularly red. No enlarged lymph nodes in the anterior neck. Resp clear to auscultation bilaterally Cardio regular rate, regular rhythm, no murmurs and no gallops Cardio Narrative: no ectopy GI normal to inspection, nondistended, normoactive bowel sounds, soft to palpation and non-tender Extremity no calf tenderness Extremity Narrative: Trace swelling limited to the L ankle. Skin Rashes: no rashes Wound Narrative: the posterior cervical incision is intact with no dehiscence. There is no serenity- incisional erythema and no DC from the incision. Neuro CN's II-XII intact bilaterally Speech: speech normal Psych affect normal Appearance: appropriate Attitude: No agitated Assessment & Plan Assessment/Plan (1) Physical debility: (2) ABLA (acute blood loss anemia): (3) Hyponatremia: (4) History of spinal fusion: (5) Acute pain due to trauma: (6) Hypertension, uncontrolled: (7) Sore throat: PLAN: I suspect she is having a sore throat due to post nasal drainage. Will order a rapid strep and if it is negative will Rx Atrovent Nasal spray at night. Order throat lozenges. PLAN: Plan 1. Continue therapy 2. Check the blood pressure 4 times daily starting at 6 AM and ending at 10 PM. This will allow her better adjustment of antihypertensive medications. She was started on Norvasc yesterday in addition to lisinopril and propranolol that she was already taking. 3. Await the results of the rapid strep. Charges/Coding Visit Charges Inpatient E&M: 00246 Subs Hosp L1
[2023-05-04] MEDS: Miconazole Nitrate 43 GM Bottle 1 APPLIC TOPICAL ×2 (11:01→22:00)
--- NOTE | 2023-05-04 16:06 | CASEMGMT ---
Social Work Received call from requesting SNF referral to [facility]. SW placed referral via [facility]. [facility] can accept. SW spoke with pt that [facility] can accept. However, nursing informed this worker pt has a f/u appt with the surgeon on 05/10 that the surgeon is not willing to postpone. The goal is pt to DC from [facility] to SNF prior to appt for pt to attend the appt. Pt expressed understanding. SW also completed advanced directives with pt. SW updated the [facility] about appt and they are inquiring about transport to the appt and will notify this worker with the outcome. SW will continue to follow. FRANCE PenaW
[2023-05-04 16:26] LABS: Bedside Glucose 105 mg/dL (74-106)
[2023-05-04 18:00] VITALS: BP 123/50; PULSE 71
[2023-05-04 21:45] VITALS: BP 104/67; PULSE 67; RESP 15; TEMP 36.2; O2SAT 94
[2023-05-04] MEDS: Atorvastatin Calcium 20 MG Tablet PO (21:59)
[2023-05-04] MEDS: Ipratropium Bromide 0.06% NASAL SPRAY 2 SPRAY NASAL (21:59)
[2023-05-04] MEDS: BENZOCAINE/MENTHOL 1 LOZENGE MUCOUS MEM (22:25)
[2023-05-05] MEDS: oxyCODONE 5 MG Tablet PO ×4 (03:29→21:44)
[2023-05-05 06:00] VITALS: BP 148/66; PULSE 67; RESP 18; TEMP 36.7; O2SAT 96; BMI 30.4
[2023-05-05] MEDS: Arthritis Pain Compound 60 CLICK TUBE TOPICAL ×3 (06:04→20:40)
[2023-05-05] MEDS: Acetaminophen 325 MG Tablet 650 MG PO ×4 (06:05→21:43)
[2023-05-05] MEDS: Enoxaparin 40 MG/0.4 ML Syringe SC (06:05)
[2023-05-05] MEDS: Propranolol 40 MG Tablet PO ×3 (06:05→20:34)
[2023-05-05] MEDS: Methocarbamol 500 MG Tablet 1000 MG PO ×4 (06:06→21:44)
[2023-05-05] MEDS: BACITRACIN/POLYMYXIN B 15 GM Tube 1 APPLIC TOPICAL ×2 (06:06→20:41)
[2023-05-05] MEDS: BENZOCAINE/MENTHOL 1 LOZENGE MUCOUS MEM (06:34)
[2023-05-05 07:01] LABS: Bedside Glucose 117 mg/dL (74-106)
[2023-05-05] MEDS: Pioglitazone Hydrochloride 30 MG Tablet PO (08:51)
[2023-05-05] MEDS: Gabapentin 100 MG Capsule PO ×3 (08:51→17:14)
[2023-05-05] MEDS: Glimepiride 2 MG Tablet PO (08:51)
[2023-05-05] MEDS: Lisinopril 20 MG Tablet PO ×2 (08:52→20:35)
[2023-05-05] MEDS: Lidocaine 5% Patch 1 PATCH TOPICAL (08:52)
[2023-05-05] MEDS: amLODIPine 2.5 MG Tablet PO (08:52)
[2023-05-05] MEDS: Polyethylene Glycol 3350 17 GM PACKET PO (08:54)
[2023-05-05] MEDS: Miconazole Nitrate 43 GM Bottle 1 APPLIC TOPICAL ×2 (08:58→20:35)
--- NOTE | 2023-05-05 10:02 | CASEMGMT ---
Social Work [facility] can transport pt to appt on 05/10 and will start precert today for outcome 05/07 and plan for DC. IDT updated. [facility] updated clinicals. SW to complete 7000 and schedule cot transport. Plan: DC 05/07, pending precert, to [facility], skilled Tanvi Jara, [place] CARTERW
[2023-05-05 11:25] VITALS: BP 122/72; PULSE 63
[2023-05-05 17:28] LABS: Bedside Glucose 92 mg/dL (74-106)
[2023-05-05 18:00] VITALS: BP 133/55; PULSE 63; RESP 17; TEMP 36.5; O2SAT 97
[2023-05-05 20:00] VITALS: PULSE 61; RESP 17; O2SAT 96
[2023-05-05] MEDS: Ipratropium Bromide 0.06% NASAL SPRAY 2 SPRAY NASAL (20:34)
[2023-05-05] MEDS: Atorvastatin Calcium 20 MG Tablet PO (20:35)
[2023-05-05 22:00] VITALS: BP 120/60; PULSE 61; RESP 17; TEMP 35.7
[2023-05-06] MEDS: Arthritis Pain Compound 60 CLICK TUBE TOPICAL ×3 (05:33→20:42)
[2023-05-06] MEDS: BACITRACIN/POLYMYXIN B 15 GM Tube 1 APPLIC TOPICAL ×2 (05:33→20:44)
[2023-05-06] MEDS: Propranolol 40 MG Tablet PO ×3 (05:34→20:46)
[2023-05-06] MEDS: oxyCODONE 5 MG Tablet PO ×3 (05:34→20:54)
[2023-05-06] MEDS: Enoxaparin 40 MG/0.4 ML Syringe SC (05:35)
[2023-05-06 06:00] VITALS: BP 152/60; PULSE 62; RESP 18; TEMP 36.7; O2SAT 100
[2023-05-06] MEDS: Methocarbamol 500 MG Tablet 1000 MG PO ×4 (06:57→20:46)
[2023-05-06] MEDS: Acetaminophen 325 MG Tablet 650 MG PO ×4 (06:57→20:46)
[2023-05-06 07:22] LABS: Bedside Glucose 164 mg/dL (74-106)
[2023-05-06] MEDS: amLODIPine 2.5 MG Tablet PO (08:00)
[2023-05-06] MEDS: Lisinopril 20 MG Tablet PO ×2 (08:00→20:46)
[2023-05-06] MEDS: Pioglitazone Hydrochloride 30 MG Tablet PO (08:00)
[2023-05-06] MEDS: Gabapentin 100 MG Capsule PO ×3 (08:00→17:29)
[2023-05-06] MEDS: Glimepiride 2 MG Tablet PO (08:00)
[2023-05-06] MEDS: Lidocaine 5% Patch 1 PATCH TOPICAL (10:33)
[2023-05-06] MEDS: Miconazole Nitrate 43 GM Bottle 1 APPLIC TOPICAL ×2 (12:43→20:50)
[2023-05-06 13:00] VITALS: BP 126/82
[2023-05-06 17:29] LABS: Bedside Glucose 103 mg/dL (74-106)
[2023-05-06 17:47] VITALS: BP 112/82
[2023-05-06] MEDS: Ipratropium Bromide 0.06% NASAL SPRAY 2 SPRAY NASAL (20:43)
[2023-05-06] MEDS: Atorvastatin Calcium 20 MG Tablet PO (20:46)
[2023-05-06 22:00] VITALS: BP 120/52; PULSE 85; RESP 16; TEMP 36.7; O2SAT 97
[2023-05-07 06:00] VITALS: BP 149/71; PULSE 70; RESP 18; TEMP 36.6; O2SAT 97
[2023-05-07] MEDS: Acetaminophen 325 MG Tablet 650 MG PO ×4 (06:42→21:42)
[2023-05-07] MEDS: BACITRACIN/POLYMYXIN B 15 GM Tube 1 APPLIC TOPICAL ×2 (06:44→21:43)
[2023-05-07] MEDS: oxyCODONE 5 MG Tablet PO ×3 (06:44→20:11)
[2023-05-07] MEDS: Enoxaparin 40 MG/0.4 ML Syringe SC (06:44)
[2023-05-07] MEDS: Propranolol 40 MG Tablet PO ×3 (06:44→21:42)
[2023-05-07] MEDS: Methocarbamol 500 MG Tablet 1000 MG PO ×4 (06:45→21:42)
[2023-05-07] MEDS: Arthritis Pain Compound 60 CLICK TUBE TOPICAL ×3 (06:46→21:38)
[2023-05-07 07:21] LABS: Bedside Glucose 136 mg/dL (74-106)
[2023-05-07] MEDS: Gabapentin 100 MG Capsule PO ×3 (08:20→17:38)
[2023-05-07] MEDS: Glimepiride 2 MG Tablet PO (08:20)
[2023-05-07] MEDS: amLODIPine 2.5 MG Tablet PO (08:20)
[2023-05-07] MEDS: Lidocaine 5% Patch 1 PATCH TOPICAL (08:20)
[2023-05-07] MEDS: Pioglitazone Hydrochloride 30 MG Tablet PO (08:21)
[2023-05-07] MEDS: Lisinopril 20 MG Tablet PO ×2 (08:21→21:42)
[2023-05-07] MEDS: Senna/Docusate Sodium 1 Tablet 2 TABLET PO (08:24)
[2023-05-07] MEDS: Polyethylene Glycol 3350 17 GM PACKET PO (08:25)
[2023-05-07] MEDS: Miconazole Nitrate 43 GM Bottle 1 APPLIC TOPICAL ×2 (08:27→21:43)
[2023-05-07 11:21] VITALS: BP 128/50; PULSE 76; RESP 17; TEMP 35.6; O2SAT 95
[2023-05-07 16:51] LABS: Bedside Glucose 121 mg/dL (74-106)
[2023-05-07 18:00] VITALS: BP 126/68
[2023-05-07] MEDS: Ipratropium Bromide 0.06% NASAL SPRAY 2 SPRAY NASAL (21:39)
[2023-05-07] MEDS: Atorvastatin Calcium 20 MG Tablet PO (21:42)
[2023-05-07 22:00] VITALS: BP 127/52; PULSE 75; RESP 18; TEMP 36.6; O2SAT 99
[2023-05-08] MEDS: oxyCODONE 5 MG Tablet PO ×3 (02:24→18:32)
[2023-05-08 06:00] VITALS: BP 158/66; PULSE 70; RESP 16; TEMP 36.6; O2SAT 97
[2023-05-08] MEDS: Methocarbamol 500 MG Tablet 1000 MG PO ×4 (06:15→21:59)
[2023-05-08] MEDS: BACITRACIN/POLYMYXIN B 15 GM Tube 1 APPLIC TOPICAL ×2 (06:15→21:54)
[2023-05-08] MEDS: Enoxaparin 40 MG/0.4 ML Syringe SC (06:15)
[2023-05-08] MEDS: Acetaminophen 325 MG Tablet 650 MG PO ×4 (06:15→21:57)
[2023-05-08] MEDS: Propranolol 40 MG Tablet PO ×3 (06:15→22:01)
[2023-05-08] MEDS: Arthritis Pain Compound 60 CLICK TUBE TOPICAL ×3 (06:15→21:52)
[2023-05-08 06:29] LABS: Bedside Glucose 134 mg/dL (74-106)
[2023-05-08] MEDS: Gabapentin 100 MG Capsule PO ×3 (08:02→17:29)
[2023-05-08] MEDS: amLODIPine 2.5 MG Tablet PO (08:02)
[2023-05-08] MEDS: Pioglitazone Hydrochloride 30 MG Tablet PO (08:03)
[2023-05-08] MEDS: Lidocaine 5% Patch 1 PATCH TOPICAL (08:03)
[2023-05-08] MEDS: Lisinopril 20 MG Tablet PO ×2 (08:03→22:02)
[2023-05-08] MEDS: Glimepiride 2 MG Tablet PO (08:03)
[2023-05-08] MEDS: Polyethylene Glycol 3350 17 GM PACKET PO (08:04)
[2023-05-08] MEDS: Ergocalciferol 1.25 MG (50, 000 UNIT) Capsule PO (08:04)
[2023-05-08] MEDS: Miconazole Nitrate 43 GM Bottle 1 APPLIC TOPICAL ×2 (08:05→22:01)
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
[2023-05-08] MEDS: Buprenorphine 10 MCG PATCH.TDWK 1 PATCH TD (10:58)
[2023-05-08 11:53] VITALS: BP 138/66; PULSE 65; RESP 16; TEMP 36.4
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
[2023-05-08 17:47] LABS: Bedside Glucose 99 mg/dL (74-106)
[2023-05-08 18:00] VITALS: BP 130/62; PULSE 72
[2023-05-08 21:49] VITALS: BP 150/65; PULSE 67; RESP 18; TEMP 36.8; O2SAT 98
[2023-05-08] MEDS: Ipratropium Bromide 0.06% NASAL SPRAY 2 SPRAY NASAL (21:51)
[2023-05-08] MEDS: Atorvastatin Calcium 20 MG Tablet PO (22:03)
[2023-05-09] MEDS: Arthritis Pain Compound 60 CLICK TUBE TOPICAL ×3 (04:56→21:06)
[2023-05-09] MEDS: Enoxaparin 40 MG/0.4 ML Syringe SC (04:57)
[2023-05-09] MEDS: BACITRACIN/POLYMYXIN B 15 GM Tube 1 APPLIC TOPICAL ×2 (04:57→21:09)
[2023-05-09] MEDS: Propranolol 40 MG Tablet PO ×3 (04:58→21:04)
[2023-05-09] MEDS: oxyCODONE 5 MG Tablet PO ×3 (05:04→22:30)
[2023-05-09 06:00] VITALS: BP 130/57; PULSE 60; RESP 16; TEMP 36.7; O2SAT 99
[2023-05-09 08:16] LABS: Bedside Glucose 146 mg/dL (74-106)
[2023-05-09] MEDS: Lidocaine 5% Patch 1 PATCH TOPICAL (08:26)
[2023-05-09] MEDS: Methocarbamol 500 MG Tablet 1000 MG PO ×3 (08:27→21:04)
[2023-05-09] MEDS: amLODIPine 2.5 MG Tablet PO (08:27)
[2023-05-09] MEDS: Senna/Docusate Sodium 1 Tablet 2 TABLET PO (08:27)
[2023-05-09] MEDS: Lisinopril 20 MG Tablet PO ×2 (08:27→21:04)
[2023-05-09] MEDS: Acetaminophen 325 MG Tablet 650 MG PO ×4 (08:27→21:03)
[2023-05-09] MEDS: Glimepiride 2 MG Tablet PO (08:28)
[2023-05-09] MEDS: Pioglitazone Hydrochloride 30 MG Tablet PO (08:28)
[2023-05-09] MEDS: Gabapentin 100 MG Capsule PO ×3 (08:31→17:15)
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
[2023-05-09 11:27] VITALS: BP 148/69; PULSE 63
[2023-05-09] MEDS: Miconazole Nitrate 43 GM Bottle 1 APPLIC TOPICAL ×2 (12:22→21:14)
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
--- NOTE | 2023-05-09 15:15 | RAD_ITS ---
INDICATION: follow up cervical fusion C5-T2 EXAMINATION/TECHNIQUE: X-RAY - XR Spine Cervical 2 or 3 Views COMPARISON: No relevant prior comparison study available FINDINGS: VERTEBRAE: Preserved vertebral body height. No fracture. Posterior fusion of C5, C6 and probably T2. The upper thoracic spine is not well-seen this exam. Preservation of the normal cervical lordosis. DISCS: Endplate spondylosis at multiple levels. Mild narrowing of C5-C6 disc space. NECK SOFT TISSUES: Skin kirstie are seen from recent surgery. No prevertebral soft tissue swelling. LUNG APICES: Clear. RAD/Cerv Spine 2 or 3 Views IMPRESSION: Status post fusion of the lower cervical and upper thoracic spine as described above.. Electronically Signed: Pio Foreman MD at 15:46 EST ,
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
[2023-05-09 16:32] LABS: Bedside Glucose 95 mg/dL (74-106)
[2023-05-09] MEDS: Methocarbamol 500 MG Tablet 750 MG PO (17:15)
[2023-05-09 17:35] VITALS: BP 159/60; PULSE 60
[2023-05-09 21:02] VITALS: BP 147/61; PULSE 62; RESP 17; TEMP 36.5; O2SAT 99
[2023-05-09] MEDS: Atorvastatin Calcium 20 MG Tablet PO (21:04)
[2023-05-09] MEDS: Ipratropium Bromide 0.06% NASAL SPRAY 2 SPRAY NASAL (21:06)
[2023-05-10] MEDS: Arthritis Pain Compound 60 CLICK TUBE TOPICAL ×2 (04:50→13:54)
[2023-05-10] MEDS: BACITRACIN/POLYMYXIN B 15 GM Tube 1 APPLIC TOPICAL (04:51)
[2023-05-10] MEDS: Enoxaparin 40 MG/0.4 ML Syringe SC (04:51)
[2023-05-10] MEDS: Propranolol 40 MG Tablet PO ×2 (04:52→13:55)
[2023-05-10 05:53] LABS: Hematocrit 39.7 % (37-47); Mean Corp Hgb Conc 32.7 g/dL (32-36); Mean Corpuscular Volume 91.5 fL (81-99); Mean Platelet Vol. 8.9 fl (6.2-12.0); Platelet Count 281 K/mm3 (150-450); RBC Distribution Width CV 14.8 % (11.6-14.6); RBC Distribution Width SD 49.4 fl (35.1-43.9); Red Blood Count 4.34 M/mm3 (4.2-5.4); White Blood Count 4.9 K/mm3 (4.4-11.0)
[2023-05-10 06:00] VITALS: BP 141/54; PULSE 67; RESP 16; TEMP 37.1; O2SAT 97
[2023-05-10] MEDS: Methocarbamol 500 MG Tablet 750 MG PO ×3 (06:05→16:29)
[2023-05-10] MEDS: Acetaminophen 325 MG Tablet 650 MG PO ×3 (06:06→16:33)
[2023-05-10 06:08] LABS: Anion Gap 7 (5-15); BUN 17 mg/dL (7-18); Calcium,Total 9.7 mg/dL (8.5-10.1); Chloride 101 mmol/L (98-107); Creatinine, Serum 0.71 mg/dL (0.55-1.02); EST Glomerular Filtration Rate 87 mL/min (>60); Est Glom Filt Rate - Afr Amer 105 mL/min (>60); Estimated Creatinine Clearance 74.46 ml/min; Glucose 137 mg/dL (74-106); Magnesium 2.2 mg/dL (1.6-2.6); Phosphorus 3.8 mg/dL (2.5-4.9); Potassium 4.4 mmol/L (3.5-5.1); Sodium Level 136 mmol/L (136-145)
[2023-05-10 06:59] LABS: Bedside Glucose 134 mg/dL (74-106)
[2023-05-10 08:00] LABS: Bedside Glucose 145 mg/dL (74-106)
[2023-05-10] MEDS: Gabapentin 100 MG Capsule PO ×3 (08:08→16:32)
[2023-05-10] MEDS: oxyCODONE 5 MG Tablet PO ×2 (08:08→14:18)
[2023-05-10] MEDS: Miconazole Nitrate 43 GM Bottle 1 APPLIC TOPICAL (08:10)
[2023-05-10] MEDS: Lidocaine 5% Patch 1 PATCH TOPICAL (08:13)
[2023-05-10] MEDS: Senna/Docusate Sodium 1 Tablet 2 TABLET PO (09:48)
[2023-05-10] MEDS: Pioglitazone Hydrochloride 30 MG Tablet PO (09:49)
[2023-05-10] MEDS: Lisinopril 20 MG Tablet PO (09:49)
[2023-05-10] MEDS: Polyethylene Glycol 3350 17 GM PACKET PO (09:49)
[2023-05-10] MEDS: Venlafaxine XR 75 MG Capsule PO (09:50)
[2023-05-10] MEDS: amLODIPine 2.5 MG Tablet PO (09:50)
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
[2023-05-10 11:11] LABS: Albumin, Serum 3.3 g/dL (3.2-5.0)
[2023-05-10 11:17] VITALS: BP 150/82; PULSE 74
[2023-05-10] MEDS: Juven (unflavored) Packet 1 PACKET PO (16:29)
[2023-05-10 16:33] LABS: Bedside Glucose 129 mg/dL (74-106)
[2023-05-10 17:22] VITALS: BP 156/67; PULSE 65
[2023-05-10] MEDS: Bisacodyl 5 MG Tablet PO (18:00)
[2023-05-10 21:00] VITALS: BP 162/72; PULSE 75; RESP 18; TEMP 36.7; O2SAT 97
--- NOTE | 2023-05-10 22:30 | NURSING ---
Per patient request, she wanted a pill for her nausea. Approximately 10cc emesis noted of clear fluid. Dr. Jones paged and ordered Zofran. Patient refused all HS meds despite this nurse's education on her needing stool softeners and blood pressure medications. Patient emotional and anxious. BS x 4, abdomen soft, rounded, obese. Patient reported she had a BM 2 days ago. Patient said her nausea started after she ate a ho ho tonight.
[2023-05-10] MEDS: Ondansetron ODT 4 MG Tablet 8 MG PO (22:37)
[2023-05-11 06:00] VITALS: BP 170/80; PULSE 69; RESP 17; TEMP 36.3; O2SAT 96
[2023-05-11] MEDS: BACITRACIN/POLYMYXIN B 15 GM Tube 1 APPLIC TOPICAL ×2 (06:03→21:07)
[2023-05-11] MEDS: Enoxaparin 40 MG/0.4 ML Syringe SC (06:04)
[2023-05-11] MEDS: Ondansetron ODT 4 MG Tablet 8 MG PO ×2 (06:39→15:06)
[2023-05-11 06:43] LABS: Bedside Glucose 128 mg/dL (74-106)
--- NOTE | 2023-05-11 06:52 | NURSING ---
Patient in a good mood this AM. Patient still has residual nausea when she awoke and given prn zofran. No emesis. VS stable. Patient refused AM meds at this time until she feels better she reported. Will pass on to day nurse.
[2023-05-11] MEDS: Arthritis Pain Compound 60 CLICK TUBE TOPICAL ×3 (08:23→21:06)
[2023-05-11] MEDS: Methocarbamol 500 MG Tablet 750 MG PO ×2 (08:24→11:39)
[2023-05-11] MEDS: Propranolol 40 MG Tablet PO ×3 (08:24→22:27)
[2023-05-11] MEDS: Acetaminophen 325 MG Tablet 650 MG PO ×2 (08:25→11:39)
[2023-05-11] MEDS: Venlafaxine XR 75 MG Capsule PO (08:26)
[2023-05-11] MEDS: Pioglitazone Hydrochloride 30 MG Tablet PO (08:26)
[2023-05-11] MEDS: Polyethylene Glycol 3350 17 GM PACKET PO (08:27)
[2023-05-11] MEDS: amLODIPine 2.5 MG Tablet PO (08:27)
[2023-05-11] MEDS: Lidocaine 5% Patch 1 PATCH TOPICAL (08:27)
[2023-05-11] MEDS: Lisinopril 20 MG Tablet PO ×2 (08:28→22:26)
[2023-05-11] MEDS: Miconazole Nitrate 43 GM Bottle 1 APPLIC TOPICAL (08:30)
[2023-05-11] MEDS: Gabapentin 100 MG Capsule PO ×2 (08:39→11:39)
[2023-05-11] MEDS: Senna/Docusate Sodium 1 Tablet 2 TABLET PO (08:42)
[2023-05-11 11:10] VITALS: BP 117/51; PULSE 70
[2023-05-11] MEDS: Magnesium Citrate 300 ML PO (11:21)
[2023-05-11] MEDS: Pantoprazole Sodium 40 MG Tablet PO (11:23)
--- NOTE | 2023-05-11 12:50 | RAD_ITS ---
INDICATION: abd pain/nausea EXAMINATION/TECHNIQUE: X-RAY - XR Abdomen W/ Decub and/or Erect Views COMPARISON: No relevant prior comparison study available FINDINGS: BOWEL GAS PATTERN: Nonspecific gaseous bowel loops. Gas pattern is nonobstructive. Few air-fluid levels. FREE AIR: No evidence of free air on this examination ORGANOMEGALY: Not seen. CALCIFICATIONS: No abnormal calcifications observed. LOWER CHEST: No acute pathology. BONES AND SOFT TISSUES: Degenerative changes of the spine. RAD/Abd Inc Decub and/or Erect IMPRESSION: Nonobstructive gas pattern with a few air-fluid levels could be due to mild ileus. Electronically Signed: Pio Foreman MD at 14:09 EST ,
--- NOTE | 2023-05-11 13:41 | CASEMGMT ---
Social Work IDT met with patient and via conference call for Team meeting. Discussed patient's progress in PT/OT/ST/SN. Currently, precert is pending with [facility]. Once received, pt will DC the SNF via cot transport. FRANCE PenaW
[2023-05-11 13:50] LABS: Lipase 57 U/L (13-75)
--- NOTE | 2023-05-11 14:47 | PN_ITS ---
Subjective Subjective Ximena was seen on team rounds today. Her Dudley participated by phone. Afebrile VSS Maintaining appropriate oxygen saturation on RA Oral intake - FOOD poor FLUIDS poor despite encouragement to increase her fluid intake to help with constipation. Discussed with nursing - refused to take her AM medications today but, has taken 2 doses of Oxycodone. [facility] and then fell right back to sleep for the night. Night hospitalist ordered Zofran PRN and she is now requesting it every couple hours. Told me she could not drink Mag Citrate because she is throwing it back up.....she had a glob of spit only in the emesis bag. In the past 4 hours she has had approximately 1 oz of MAG citrate. Reviewed the THERAPY notes Medication list reviewed. Complaining of pain in the area of the left medial scapula. Thinks she pulled a muscle . I showed her how to stretch the area to relieve muscle tension and not 2 minutes later she requested another pill or patch for the pain. Current pain medications include a buprenorphine patch, gabapentin 100 mg 3 times daily, a lidocaine patch, methocarbamol 750 mg 4 times daily, acetaminophen 4 times daily and a compounded arthritis cream containing baclofen, lidocaine and Voltaren 3 times daily. She is c/o nausea and abd pain. Obtained a acute abd and it shows a lot of stool accumulation and just a few air fluid levels consistent with ileus, more likely than not due to pain medications and immobility. Not able to do 3 hours of therapy daily. No cephalgia, no CP, not SOB, no cough, no calf pain, not tachypneic. Tells me that she has no appetite. C/O feeling very tired......I pointed out that the pain medications and muscle relaxers cause fatigue and somnolence. Objective Data Objective Data Vital Signs: Vital Signs Temp Pulse Resp BP Pulse Ox O2 Del Method 97.4 F L 70 17 117/51 L 96 Room Air 05/11/23 06:00 05/11/23 11:10 05/11/23 06:00 05/11/23 11:10 05/11/23 06:00 05/11/23 06:00 Oxygen Delivery Method Room Air Weight: 193 lb 9.6 oz Body Mass Index (BMI) 30.4 Intake & Output: Intake and Output for Last 24 Hours 05/09/23 05/10/23 05/11/23 23:59 23:59 23:59 Intake Total 700 / 700 560 / 560 280 / 280 Output Total 400 / 400 700 / 700 1000 / 1000 Balance 300 / 300 -140 / -140 -720 / -720 Lab / Micro Data 05/10/23 05:39 05/10/23 05:39 Labs: Laboratory Results - last 24 hr 05/10/23 16:10: POC Glucose 129 H 05/11/23 05:58: POC Glucose 128 H 05/11/23 13:22: Lipase 57 Micro: Microbiology 05/04/23 10:00 Mucosa - Throat Streptococcus pyogenes (PCR) - Final Radiography Diagnostic Testing: Radiology Impression Abdomen X-Ray 05/11/23 12:50 IMPRESSION: Nonobstructive gas pattern with a few air-fluid levels could be due to mild ileus. Electronically Signed: Pio Foreman MD at 14:09 EST , Physical Exam Const Constitutional Narrative: When I first saw her this morning she appeared to be in no distress. When the TEAM went into her room she was turned on her R side and was clutching a emesis bag with some spit in it and complaining she was throwing up . She was moaning. HEENT Mouth: dry mucous membranes Eyes PERRL and EOMs intact bilaterally Eyes Narrative: No scleral icterus Neck No nuchal rigidity Neck Narrative: [place] J collar is in place Resp Resp Narrative: Clear to auscultation with few coarse crackles in the bases secondary to poor inspiratory effort. No conversational dyspnea Effort and Inspection: Negative for tachypneic Cardio regular rate, regular rhythm and no gallops GI GI Narrative: Mildly distended and tympanic. Low-frequency bowel sounds in all quadrants. No high-pitched tinkling bowel sounds. The abdomen is soft. Extremity no calf tenderness General Extremity: Negative for edema Skin General Skin Exam: dry skin Rashes: no rashes Wound Narrative: The fusion site is intact with no Dc and no erythema. Neuro CN's II-XII intact bilaterally and no focal motor deficits Speech: speech normal Psych Psych Narrative: Flat depressed affect. Not cooperative. Assessment & Plan Assessment/Plan (1) Physical debility: (2) History of spinal fusion: PLAN: C5-T2.....surgeon is Dr. Art. (3) Acute pain due to trauma: PLAN: Adequate control at this time (4) Reactive depression: PLAN: She is agreeable to starting an antidepressant. We agreed on Effexor since it not only treats depression but, helps with chronic pain. (5) Diabetes: QUALIFIERS: Diabetes mellitus type: type 2 Diabetes mellitus mcc insulin use: without manager intermediate use (6) Constipation due to opioid therapy: (7) Ileus: PLAN: mild PLAN: Plan 1. awaiting precert to transfer to a SNF. Not unable to do 3 hours of therapy daily. 2. Miralax increased to BID. Senna S 2 tabs BID continued. 3. I stressed to her the importance of getting the bowels moving to prevent narcotic induced megacolon. Also stressed the importance of increasing fluid intake. 4. Lipase was checked and is normal at 57. 5. Acute abdomen shows no evidence of bowel obstruction or free air in the abdomen. There is a large stool accumulation and an unremarkable gaseous pattern. 6. give a one time dose of Zofran 8 mg and increase the PRN Zofran to 4 mg q6H PRN. 7. she is to drink the remainder of the Mag Citrate over the next 30 minutes. If she is unable/unwilling to do this will have to consider an NG tube. 8. SS enema now. Charges/Coding Visit Charges Inpatient E&M: 45762 Subs Hosp L2
[2023-05-11 15:05] VITALS: BP 140/56; PULSE 66
[2023-05-11] MEDS: Magnesium Hydroxide 30 ML UDC 60 ML PO (16:53)
[2023-05-11 17:01] LABS: Bedside Glucose 154 mg/dL (74-106)
[2023-05-11 17:41] VITALS: BP 136/63; PULSE 68
--- NOTE | 2023-05-11 20:36 | NURSING ---
Patient resting in bed with cool washcloth on her forehead, c\o of still having nausea for 3 days, states she wonders if she has covid or the flu because it keeps coming back and the meds are not helping as much as they did at first. Dr. Dejesus notified and order received to do covid and flu swab. Pt given warm blanket for her abdomen.
[2023-05-11] MEDS: Ondansetron ODT 4 MG Tablet PO (21:06)
[2023-05-11 22:25] VITALS: BP 168/70; PULSE 72; RESP 18; TEMP 36.7; O2SAT 97
[2023-05-11] MEDS: Mirtazapine 15 MG Tablet PO (22:26)
[2023-05-11] MEDS: oxyCODONE 5 MG Tablet PO (23:22)
[2023-05-12 05:59] VITALS: BP 152/60; PULSE 68; RESP 15; TEMP 36.6; O2SAT 98
[2023-05-12 06:00] VITALS: BMI 29.4
[2023-05-12] MEDS: BACITRACIN/POLYMYXIN B 15 GM Tube 1 APPLIC TOPICAL (06:01)
[2023-05-12] MEDS: Arthritis Pain Compound 60 CLICK TUBE TOPICAL ×2 (06:01→13:00)
[2023-05-12] MEDS: Propranolol 40 MG Tablet PO ×2 (06:03→13:00)
[2023-05-12] MEDS: Methocarbamol 500 MG Tablet 750 MG PO (06:04)
[2023-05-12] MEDS: Enoxaparin 40 MG/0.4 ML Syringe SC (06:05)
[2023-05-12 07:30] LABS: Bedside Glucose 118 mg/dL (74-106)
[2023-05-12] MEDS: Miconazole Nitrate 43 GM Bottle 1 APPLIC TOPICAL (08:06)
[2023-05-12] MEDS: Pioglitazone Hydrochloride 30 MG Tablet PO (08:06)
[2023-05-12] MEDS: Pantoprazole Sodium 40 MG Tablet PO (08:08)
[2023-05-12] MEDS: Senna/Docusate Sodium 1 Tablet 2 TABLET PO (08:09)
[2023-05-12] MEDS: Lisinopril 20 MG Tablet PO (08:09)
[2023-05-12] MEDS: Ondansetron ODT 4 MG Tablet PO ×2 (08:35→14:40)
[2023-05-12] MEDS: oxyCODONE 5 MG Tablet PO ×2 (08:36→14:40)
[2023-05-12] MEDS: amLODIPine 5 MG Tablet PO (08:41)
[2023-05-12 08:47] VITALS: BP 152/60; PULSE 68; RESP 15; TEMP 36.6; O2SAT 98
[2023-05-12] MEDS: Juven (unflavored) Packet 1 PACKET PO (10:05)
[2023-05-12] MEDS: Lidocaine 5% Patch 1 PATCH TOPICAL (10:24)
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
--- NOTE | 2023-05-12 12:36 | CASEMGMT ---
Social Work Precert approved for DC today to [facility]. Cot Transport scheduled for 1500 through [facility]. BLOSSOM phoned , who will update pt. BLOSSOM updated IDT. Plan: DC 05/11 to [facility], manju Jara, LAB ASSOCIATE MEDICATION MANAGER
--- NOTE | 2023-05-12 14:41 | CHAPLAIN ---
Type of Pastoral Visit _x__ Initial Visit ___ Follow-up Visit ___ On-call Visit ___ General Patient Visit ___ Spiritual Assessment ___ Family Conference ___ Bereavement ___ Rapid Response ___ Code Blue ___ Other (describe below) Pastoral Care Referral From _x__ Patient ___ Family ___ Nurse ___ Physician ___ Tax Professional ___ Nursing Associate ___ Other (describe below) Sacrament/Intervention _x__ Active listening ___ Anointing ___ Holiness ___ Bereavement ___ Communion _x__ Brenda exploration ___ _x__ Life review _x__ Prayer ___ Reconciliation ___ Sacrament of Sick _x__ Supportive presence ___ Wedding ___ Other (describe below) Pastoral Comments patient requested visit from this candlemaker for the purpose of prayer support; pt is to transfer out to another facility today to continue her therapies; pt does not have a current connection with a brenda community but did in the past; pt speaks of her progress, the surprise that came with this need, willingness to receive help from others, and being honest about her feelings; pt believes that prayer and brenda in God are important to her wellbeing and also asks for prayer for her family members
--- NOTE | 2023-05-12 16:31 | NURSING ---
Report called to Bill at [facility]. [facility] here at 1530 to p/u patient with erikarney. Patient medicated with pain medication prior to transport.
== END 2023-05-12 15:30 | disposition skilled nursing facility (03) | DRG 560 ==
PROVIDERS: Admitting Provider Internal Medicine; PCP Family Medicine; Visit Provider Internal Medicine
DX: S22.32XD Fracture of one rib, left side, subsequent encounter for fracture with routine healing (principal); E87.1 Hypo-osmolality and hyponatremia; K56.7 Ileus, unspecified; E11.9 Type 2 diabetes mellitus without complications; I10 Essential (primary) hypertension; F32.9 Major depressive disorder, single episode, unspecified; E78.5 Hyperlipidemia, unspecified; K59.03 Drug induced constipation; S06.6X9D Traumatic subarachnoid hemorrhage with loss of consciousness of unspecified duration, subsequent encounter; Z87.891 Personal history of nicotine dependence; S32.422D Displaced fracture of posterior wall of left acetabulum, subsequent encounter for fracture with routine healing; S22.22XD Fracture of body of sternum, subsequent encounter for fracture with routine healing; V99.XXXD Unspecified transport accident, subsequent encounter; S01.01XD Laceration without foreign body of scalp, subsequent encounter; S12.500D Unspecified displaced fracture of sixth cervical vertebra, subsequent encounter for fracture with routine healing; S12.600D Unspecified displaced fracture of seventh cervical vertebra, subsequent encounter for fracture with routine healing; S72.052D Unspecified fracture of head of left femur, subsequent encounter for closed fracture with routine healing; S32.302D Unspecified fracture of left ilium, subsequent encounter for fracture with routine healing; Z98.1 Arthrodesis status; Z79.899 Other long term (current) drug therapy; Z79.84 Long term (current) use of oral hypoglycemic drugs; T40.2X5A Adverse effect of other opioids, initial encounter
CPT/HCPCS: 36415; 70450; 71046; 72040; 74019; 80048; 80053; 82040; 82043; 82962; 83036; 83690; 83735; 84100; 85025; 85027; 87631; 87651; 92507; 92523; 92526; 92610; 97110; 97116; 97129; 97130; 97163; 97166; 97530; 97535; 97542; 97802; 97803

== ENCOUNTER → 2023-05-15 | Outpatient (REF) | payer SELFPAY ==
[2023-05-15 09:22] LABS: Hemoglobin 12.5 g/dL (12.0-15.0); Mean Corp Hgb Conc 32.1 g/dL (32-36); Mean Corpuscular Hgb 29.7 pg (27.0-32.0); Mean Corpuscular Volume 92.6 fL (81-99); Mean Platelet Vol. 10.6 fl (6.2-12.0); Platelet Count 186 K/mm3 (150-450); RBC Distribution Width CV 14.6 % (11.6-14.6); RBC Distribution Width SD 49.4 fl (35.1-43.9); Red Blood Count 4.21 M/mm3 (4.2-5.4); White Blood Count 5.5 K/mm3 (4.4-11.0)
[2023-05-15 09:31] LABS: Vitamin D,25 Hydroxy 46.2 ng/mL
[2023-05-15 10:05] LABS: ALB/GLOB Ratio 0.8 RATIO (0.9-2.4); AST(SGOT) 15 U/L (15-37); Alanine Aminotransfer ALT/SGPT 20 U/L (13-56); Albumin, Serum 2.9 g/dL (3.2-5.0); Alkaline Phosphatase 150 U/L (45-117); Anion Gap 11 (5-15); BUN 20 mg/dL (7-18); BUN/Creat Ratio 26.8 RATIO (10-20); Calcium,Total 9.4 mg/dL (8.5-10.1); Chloride 102 mmol/L (98-107); Cholesterol 132 mg/dL (200); Creatinine, Serum 0.75 mg/dL (0.55-1.02); EST Glomerular Filtration Rate 82 mL/min (>60); Est Glom Filt Rate - Afr Amer 99 mL/min (>60); Globulin 3.5 g/dL (2.2-4.2); Glucose 136 mg/dL (74-106); High Density Lipoprotein 43 mg/dL; Magnesium 2.4 mg/dL (1.6-2.6); Potassium 4.5 mmol/L (3.5-5.1); Protein, Total 6.4 g/dL (6.4-8.2); Sodium Level 135 mmol/L (136-145); Thyroid Stim Hormone (TSH) 3.56 uIU/mL (0.358-3.74); Triglycerides 216 mg/dL; Uric Acid 4.8 mg/dL (2.6-6.0); Very Low Density Lipoprotein 43 mg/dL (5-40)
[2023-05-15 13:39] LABS: Hemoglobin A1c 5.5 % (3.8-5.6)
== END ==
LOC: OLS.ACW100 05:00
PROVIDERS: PCP Family Medicine; Visit Provider Family Medicine
DX: I10 Essential (primary) hypertension (principal); Z79.899 Other long term (current) drug therapy
CPT/HCPCS: 36415; 80053; 80061; 82306; 83036; 83735; 84443; 84550; 85027